=== PATIENT | female | born 1980 | race African-American/Black ===

== ENCOUNTER 2017-07-18 12:24 | Outpatient (CLI) | payer OTHER ==
--- NOTE | 2017-07-18 14:03 | ULT ---
SOFT TISSUE NECK ULTRASOUND: HISTORY: A 36-year-old female with a history of localized swelling of neck. FINDINGS: Evaluation of the neck including right and left submandibular regions with attenuation to bilateral p alpable findings. There are multiple bilaterally enlarged lymph nodes, one of the largest in the sub mental region in the midline measures 1.1 x 2.2 cm. The left submandibular region node measures appr oximately 0.9 x 1.7 cm and right-sided submandibular node measuring approximately 0.9 cm in size. IMPRESSION: Multiple focal palpable findings in the upper neck, primarily the submandibular region consistent wit h multiple enlarged lymph nodes, the etiology of which is uncertain from this study. POS: LAQUITA
== END 2017-07-18 12:25 | disposition home or self-care (01) ==
LOC: ULT 12:24
DX: R22.1 Localized swelling, mass and lump, neck (principal)
CPT/HCPCS: 76536

== ENCOUNTER 2019-02-11 10:02 | Outpatient (CLI) | payer MEDICAID ==
--- NOTE | 2019-02-11 13:38 | MMO ---
Bilateral MAMMO Bilat Screen [facility]. CLINICAL HISTORY: Patient is 38 years old and is seen for screening. The patient has the following family history of breast cancer: maternal aunt, malignant (generic). The patient has no personal history of cancer. VIEWS: The views performed were: bilateral craniocaudal and bilateral mediolateral oblique. This study has been interpreted with the assistance of computer-aided detection. MAMMOGRAM FINDINGS: There are scattered fibroglandular densities. There are no suspicious masses, suspicious calcifications, or new areas of architectural distortion. IMPRESSION: THERE IS NO MAMMOGRAPHIC EVIDENCE OF MALIGNANCY. A ROUTINE FOLLOW-UP MAMMOGRAM IN 1 YEAR IS RECOMMENDED. ACR BI-RADS Category 1 - Negative MAMMOGRAPHY NOTE: 1. A negative mammogram report should not delay a biopsy if a dominant of clinically suspicious mass is present. 2. Approximately 10% to 15% of breast cancers are not detected by mammography. 3. Adenosis and dense breasts may obscure an underlying neoplasm. Reported by: MARGUERITE OHARA MD Electonically Signed: [id number]
== END 2019-02-11 10:03 | disposition home or self-care (01) ==
LOC: BICMAMMO 10:02
PROVIDERS: ATTEND Nurse Practitioner Family
DX: Z12.31 Encounter for screening mammogram for malignant neoplasm of breast (principal)
CPT/HCPCS: 77067

== ENCOUNTER 2020-04-12 10:54 | Outpatient (CLI) | payer MEDICAID ==
--- NOTE | 2020-04-12 11:41 | MMO ---
Bilateral MAMMO Bilat Screen [facility]. CLINICAL HISTORY: Patient is 39 years old and is seen for screening. The patient has the following family history of breast cancer: maternal aunt, malignant (generic). The patient has no personal history of cancer. VIEWS: The views performed were: bilateral craniocaudal and bilateral mediolateral oblique. FILMS COMPARED: The present examination has been compared to a prior imaging study performed at [facility] on 02/11/2019. This study has been interpreted with the assistance of computer-aided detection. MAMMOGRAM FINDINGS: There are scattered fibroglandular densities. There are no suspicious masses, suspicious calcifications, or new areas of architectural distortion. IMPRESSION: THERE IS NO MAMMOGRAPHIC EVIDENCE OF MALIGNANCY. A ROUTINE FOLLOW-UP MAMMOGRAM IN 1 YEAR IS RECOMMENDED. ACR BI-RADS Category 1 - Negative MAMMOGRAPHY NOTE: 1. A negative mammogram report should not delay a biopsy if a dominant of clinically suspicious mass is present. 2. Approximately 10% to 15% of breast cancers are not detected by mammography. 3. Adenosis and dense breasts may obscure an underlying neoplasm. Reported by: MARGUERITE OHARA MD Electonically Signed: [id number]
== END 2020-04-12 10:55 | disposition home or self-care (01) ==
LOC: BICMAMMO 10:54
PROVIDERS: ATTEND Nurse Practitioner Family
DX: Z12.31 Encounter for screening mammogram for malignant neoplasm of breast (principal); Z80.3 Family history of malignant neoplasm of breast
CPT/HCPCS: 77067